=== PATIENT | male | born 1995 | race Caucasian/White ===

== ENCOUNTER 2022-08-18 08:45 | Outpatient (CLI) | payer OTHER, SELFPAY ==
--- NOTE | 2022-09-15 09:13 | WPDHOLTEREM ---
Holter/Event Monitor Holter/Event Monitor Date of procedure: 08/18/22 Holter/Event Procedure: Event Monitor Indications: Palpitations Conclusion: 1. Event monitor from 08/18/22-09/15/22. This is an symptom or auto trigger only monitor. There are 13 available transmissions for analysis. 2. Underlying rhythm is sinus rhythm. HR range 44-132 bpm. 44 bpm was on 09/10/22 at 21:55. HR at 132 bpm was on 08/31/22 12:44. 3. There is one premature supraventricular complex. No supraventricular tachycardia. 4. No ventricular tachycardia. 5. No significant pauses greater than 2 seconds. 6. Patient reports symptoms of shortness of breath, chest pain, heart racing during monitoring.
== END 2022-08-18 08:46 | disposition home or self-care (01) ==
LOC: CHSCARD 08:47
PROVIDERS: PCP Internal Medicine; Visit Provider Internal Medicine
DX: R00.2 Palpitations (principal)
CPT/HCPCS: 93270

== ENCOUNTER 2022-09-05 08:29 | Outpatient (CLI) | payer OTHER, SELFPAY ==
--- NOTE | 2022-09-05 08:34 | ECHO_ITS ---
Patient Info Name: Edin Daly Age: 27 years : 1995 Gender: Male Ht: 69 in Wt: 224 lbs BSA: 2.26 m2 HR: 70 bpm BP: 132 / 95 mmHg Heart Rhythm: Sinus Rhythm Technical Quality: Good Exam Date: 09/05/2022 8:25 AM Exam Location: [facility] Patient Status: Outpatient Admit Date: 09/05/2022 Staff Ordering Physician: Jorge Muhammad MD Php Mysql Developer: Janneth Kiran RDCS Attending Provider: Jorge Muhammad MD Exam Type: CA echo doppler color flow Study Info Indications - palpatation Complete two-dimensional, color flow and Doppler transthoracic echocardiogram is performed. Summary 1. Complete two-dimensional, color flow and Doppler transthoracic echocardiogram is performed. 2. Left ventricular chamber dimension is normal. 3. Left ventricular systolic function is normal, estimated at 55-60%. 4. There is mild concentric increased left ventricular wall thickness. 5. The left ventricular diastolic function is normal. 6. E/e' 7 is not elevated. 7. Left atrial chamber dimension is mildly enlarged. 8. There is mild mitral valve regurgitation. 9. There is trace tricuspid valve regurgitation. 10. No pulmonary hypertension, estimated pulmonary arterial systolic pressure is 9 mmHg. Left Ventricle E/e' 7 is not elevated. Left ventricular chamber dimension is normal. Left ventricular systolic function is normal, estimated at 55-60%. There is mild concentric increased left ventricular wall thickness. The left ventricular diastolic function is normal. Right Ventricle Right ventricular systolic function is normal and with normal TAPSE 2.5 cm. Right ventricular chamber dimension is normal. Left Atria Left atrial chamber dimension is mildly enlarged. Right Atria Right atrial chamber dimension is normal. Aortic Valve The aortic valve is trileaflet. There is no aortic valve stenosis. There is no aortic valve regurgitation. Pulmonic Valve There is no pulmonic regurgitation. Mitral Valve There is no mitral valve stenosis. There is mild mitral valve regurgitation. Tricuspid Valve There is trace tricuspid valve regurgitation. No pulmonary hypertension, estimated pulmonary arterial systolic pressure is 9 mmHg. Pericardium/Pleural There is no pericardial effusion. Inferior Vena Cava Normal inferior vena cava with >50% collapse upon inspiration consistent with normal right atrial pressure, 5 mmHg. Aorta The aortic root size at the sinus of Valsalva is normal. Left Ventricular Outflow Tract Name Value Normal LVOT 2D LVOT Diameter 2.2 cm LVOT Doppler LVOT Peak Velocity 84 cm/s LVOT Peak Gradient 3 mmHg LVOT Mean Gradient 1 mmHg LVOT VTI 17 cm LVOT VTI/AV VTI Ratio 0.8 LVOT Stroke Volume 60 ml Pulmonic Valve Name Value Normal RVOT Doppler RVOT Peak Gradient 1
== END 2022-09-05 08:30 | disposition home or self-care (01) ==
LOC: CHSIMG 08:30
PROVIDERS: PCP Internal Medicine; Visit Provider Internal Medicine
DX: R00.2 Palpitations (principal); I51.7 Cardiomegaly
CPT/HCPCS: 93306